=== PATIENT | male | born 1990 | race Caucasian/White ===

== ENCOUNTER 2018-11-30 23:22 | Emergency (ER) | payer SELFPAY ==
[2018-12-01] MEDS ORDERED: DOXYCYCLINE HYCLATE 100 MG TABLET PO ONE (03:35)
[2018-12-01] MEDS ORDERED: HYDROCODONE/ACETAMINOPHEN 5-325 MG (6 TAB/ER DISP) PO PRN (03:35)
--- NOTE | 2018-12-01 04:11 | RADIOLOGY REPORT (SQ) ---
Right foot two view on 12/01/2018 at 3:49 AM CLINICAL INDICATION: Pain and swelling and redness COMPARISON: None FINDINGS: There are couple of small radiopaque densities in the medial likely plantar soft tissues of the fifth toe. This could be related to small radiopaque foreign body. No other evidence of foreign body is noted. Mild soft tissue swelling is noted in the foot. There are no fractures. Visualized joints are well aligned. No definite plain radiographic evidence of osteomyelitis is noted. IMPRESSION: Possible small foreign bodies in the fifth toe soft tissues with no acute bony abnormality.
--- NOTE | 2018-12-01 04:39 | ER Document Report ---
ED General - General Chief Complaint: Insect Bite Stated Complaint: SPIDER BITE ON RIGHT FOOT Time Seen by Provider: 12/01/18 03:30 Notes: Patient is a pleasant 28-year-old male presents with complaint of redness and swelling to the right foot. This is been gradual worsening of course several days. He says it was not too painful to walk on. He denies any fevers. No vomiting. No diarrhea. He is initially started like a small red bump on his foot and then the redness started to spread. Is not diabetic. He has no chronic medical problems. He is otherwise healthy. He denies any trauma to his foot. He denies any recent puncture wounds to his foot. No other complaints at this time. TRAVEL OUTSIDE OF THE [place] IN LAST 30 DAYS: No Past Medical History - Social History Smoking Status: Current Every Day Smoker Chew tobacco use (# tins/day): No Frequency of alcohol use: None Drug Abuse: None, Prescription drugs Family History: Reviewed & Not Pertinent Patient has suicidal ideation: No Patient has homicidal ideation: No Review of Systems - Review of Systems Notes: My Normal Review Basic REVIEW OF SYSTEMS: CONSTITUTIONAL : Denies fever, chills, or sweats. Denies recent illness. RESPIRATORY: Denies cough, cold, or chest congestion. Denies shortness of breath, difficulty breathing, or wheezing. GASTROINTESTINAL: Denies abdominal pain. Denies nausea, vomiting, or diarrhea. MUSCULOSKELETAL: Right foot pain SKIN: Denies rash or skin lesions. NEUROLOGICAL: Denies sensory or motor loss. ALL OTHER SYSTEMS REVIEWED AND NEGATIVE. Physical Exam - Vital signs Vitals: Temp Pulse Resp BP Pulse Ox 99.8 F 93 20 130/72 H 96 11/30/18 23:28 11/30/18 23:28 11/30/18 23:28 11/30/18 23:28 11/30/18 23:28 - Notes Notes: General Appearance: Well nourished, alert, cooperative, no acute distress, moderate obvious discomfort. Vitals: reviewed, See vital signs table. Eyes: PERRL, EOMI, Conjuctiva clear Mouth: No decreasd moisture Throat: No tonsillar inflammation, No airway obstruction, No lymphadenopathy Neck: Supple, no neck tenderness, No thyromegaly Lungs: No wheezing, No rales, No rhonci, No accessory muscle use, good air exchange bilaterally. Heart: Normal rate, Regular rythm, No murmur, no rub Extremities: Patient is some redness and swelling to the foot that is mainly on the medial aspect of the dorsum of the foot. No fluctuance. Redness covers approximately half of the dorsum of the foot. No evidence of a puncture wound. No cuts or lacerations on the foot. No crepitance. Skin: warm, dry, appropriate color, no rash Neuro: speech clear, oriented x 3, normal affect, responds appropriately to questions. Course - Re-evaluation Re-evalutation: 12/01/18 06:21 Patient has what appears to be just a limited cellulitis to the right foot. He is tachycardic when first arrived I think is related to pain. Tachycardia appears to have improved. His temperature is normal. I did recheck his heart r ate and it was 98 to 100. I did give him a dose pain medicine this appears to be helping. I will give him crutches as patient says he has no pain with bearing weight on his foot. I did obtain an x-ray to see if there is any evidence of an obvious large foreign body. He did see what I suspect this may be a foreign body in the small toe on his right foot. He has no redness or swelling to the small toe. I did look a small toe and there was little piece of metallic material on the outside the skin which was able to pressure way. This could be what was being seen on x-ray. I palpated the toe when I do not feel any foreign body at the skin or anything that would be appropriate to get the toe or look for. Informed patient of this and he is understanding of this. I informed him to have a low threshold to return to ER if he has increasing redness or swelling, fevers, or feel like he is worsening in any way. Patient was placed on antibiotic. Patient agrees with plan will be discharged home. Dictation of this chart was performed using voice recognition software; therefore, there may be some unintended grammatical errors. 12/01/18 06:22 - Vital Signs Vital signs: Temp Pulse Resp BP Pulse Ox 97.7 F 88 20 122/82 95 12/01/18 05:52 12/01/18 05:52 11/30/18 23:40 12/01/18 05:52 12/01/18 05:52 Discharge - Discharge Clinical Impression: Cellulitis Qualifiers: Site of cellulitis: extremity Site of cellulitis of extremity: lower extremity Laterality: right Qualified Code(s): L03.115 - Cellulitis of right lower limb Condition: Good Disposition: HOME, SELF-CARE Additional Instructions: Please take the antibiotic as prescribed. Please have a low threshold to return tot the ER if you have increasing pain, increasing swelling, or spreading redness in your foot. Please follow up with a doctor or return to the ER on Monday for reevaluation. You xray did show a small amount a possible small foreign body in the little toe on your right foot. I cannot feel or palpate anything on your toe at this time and therefore it would not be appropriate to cut your toe or go looking for the possible foreign body. Please return to the ER if you develop any redness or swelling in your little toe. Please be aware that [facility] does have Tylenol (acetaminophen) in it. Please make sure you do not take more than 4000 mg of acetaminophen a day. Do not drive or care for children after you have taken this medication they will make you sleepy and sometimes impair judgment. Doxycycline will make your skin more sensitive to the sun so please make sure you keep your skin covered or wear sunscreen whenever out in the sun. Prescriptions: Doxycycline Hyclate 100 mg PO BID #14 capsule Forms: Return to Work
[2018-12-01] MEDS ORDERED: HYDROMORPHONE HCL INJ/PF 2 MG/ML AMPULE IM ONE (04:42)
[2018-12-01 05:54] VITALS: BP 122/82
== END 2018-12-01 06:28 | disposition home or self-care (01) ==
LOC: ER 23:22
DX: L03.115 Cellulitis of right lower limb (principal); R00.0 Tachycardia, unspecified; M79.89 Other specified soft tissue disorders; F17.200 Nicotine dependence, unspecified, uncomplicated
CPT/HCPCS: 99282; 96372; 73620; J1170